=== PATIENT | female | born 1995 | race Caucasian/White ===

== ENCOUNTER 2018-09-12 07:59 | Emergency (ER) | payer SELFPAY ==
--- NOTE | 2018-09-12 08:25 | UC ---
Respiratory Complaint HPI - HPI Summary HPI Summary: 23 year old female with PMh + for asthma presents with wheezing, SOB, chest tightness with deep breathing x 1 week. Has been going nebulizers at home, albuterol, and also on Combivent, Flonase, Claritin. Some improvement with nebulizers, but short lived. Has taken steroids in past for asthma exaccerbations with illnesses, last time several months ago. No fever, chills, denies sore throat, ear pain, sinus pain, GI symptoms. PCP in [facility], patient visiting [place]. - History of Current Complaint Stated Complaint: CONGESTION Time Seen by Provider: 09/12/18 08:10 Hx Obtained From: Patient ?: No Onset/Duration: Sudden Onset, Lasting Days - 7 days Timing: Constant Severity Initially: Moderate Severity Currently: Moderate Character: Cough: Productive Aggravating Factors: Deep Breaths Alleviating Factors: Bronchodilator Associated Signs And Symptoms: Positive: Wheezing. Negative: Dyspnea, Fever, Chills, Nasal Congestion, Sinus Discomfort - Allergies/Home Medications Allergies/Adverse Reactions: Allergies Allergy/AdvReac Type Severity Reaction Status Date / Time No Known Allergies Allergy Verified 09/12/18 08:19 Home Medications: Home Medications Albuterol/Ipratropium RESP(NF) [Combivent Respimat (NF)] 1 aer IN DAILY PRN 03/23 [History Confirmed 09/12/18] Fluticasone NASAL SPRAY 50MCG* [Flonase NASAL SPRAY 50MCG*] 2 spray BOTH NARES DAILY 09/12/18 [History Confirmed 09/12/18] Loratadine [Claritin 10 MG CAP] 10 mg PO DAILY 09/12/18 [History Confirmed 09/12] PMH/Surg Hx/FS Hx/Imm Hx Previously Healthy: No - Asthma Review of Systems All Other Systems Reviewed And Are Negative: Yes Constitutional: Positive: Negative. Negative: Fever, Chills, Fatigue Respiratory: Positive: Shortness Of Breath, Cough Is Patient Immunocompromised?: No Physical Exam Triage Information Reviewed: Yes Appearance: Well-Appearing, No Pain Distress, Well-Nourished Vital Signs Reviewed: Yes Eyes: Positive: Conjunctiva Clear ENT: Positive: Pharynx normal, TMs normal, Tonsillar swelling - mild L sided, appears chronic, Sinus tenderness, Uvula midline. Negative: Pharyngeal erythema , Nasal congestion, TM bulging, TM dull, TM red, Tonsillar exudate, Muffled voice Dental Exam: Normal Neck: Positive: Supple, Nontender, No Lymphadenopathy. Negative: Nuchal Rigidity, Enlarged Nodes @ Respiratory: Positive: Chest non-tender, Normal breath sounds, No respiratory distress, No accessory muscle use, Wheezing - b/l lobes, diffuse, inspir and expir.. Negative: Respiratory distress, Decreased breath sounds, Crackles, Rhonchi, Stridor Cardiovascular: Positive: RRR, No Murmur Abdomen Description: Positive: Nontender, No Organomegaly, Soft. Negative: CVA Tenderness (R), CVA Tenderness (L) Psychological Exam: Normal Skin Exam: Normal Respiratory Course/Dx - Course Course Of Treatment: Asthma exaccerbation due to viral illness. Steroids given, continue resuce inhaler, nebulizers, follow up with PCP with regards to BP, asthma medications. Pateint states she has enough nebs and albuterol, no scrips needed - Differential Dx/Diagnosis Differential Diagnosis/HQI/PQRI: Asthma, Lower Resp Infection Provider Diagnosis: Asthma exacerbation Discharge - Sign-Out/Discharge Documenting (check all that apply): Patient Departure All imaging exams completed and their final reports reviewed: No Studies - Discharge Plan Condition: Fair Disposition: HOME Prescriptions: methylPREDNISolone [Medrol Dosepak 4 MG*] 0 mg PO .SEE BRIANA INSTRUCTION #1 briana Patient Education Materials: Bronchospasm (ED), Methylprednisolone (By mouth) Referrals: No Primary Care Phys,NOPCP [Primary Care Provider] - Additional Instructions: - GO to ER with worsening shortness of breath, chest pain - Medrol dose pack as prescribed to decreased inflammation in lungs - Continue albuterol inhaler and nebulizers as needed - Follow up with primary physician for further treatment and evaluation of blood pressure - Continue flonase, Claritin as needed - Billing Disposition and Condition Condition: FAIR Disposition: Home
[2018-09-12 08:37] VITALS: BP 140/90
== END 2018-09-12 08:32 | disposition home or self-care (01) ==
LOC: UCEAST 07:59
DX: J45.901 Unspecified asthma with (acute) exacerbation (principal); B34.9 Viral infection, unspecified
CPT/HCPCS: 99202; G0463